=== PATIENT | male | born 1930 | race Caucasian/White ===

== ENCOUNTER 2017-09-15 14:02 | Inpatient (IN) | payer OTHER, BC ==
[~2017-09-15] VITALS: Ht 167.6 cm; Wt 72.0 kg
[2017-09-15 14:34] LABS: HEMATOCRIT 32.7 % (38.0-50.0); HEMOGLOBIN 10.3 G/DL (12.5-16.6); MCH 32.4 PG (29.0-34.0); MCHC 31.5 G/DL (30.0-36.0); MCV 102.8 FL (86-99); PLATELET COUNT 132 K/uL (156-360); RBC DIS.WIDTH-CV 16.1 % (11.8-14.6); RBC DIS.WIDTH-SD 61.3 % (39-53); RED BLOOD COUNT 3.18 M/uL (4.00-5.50); WHITE BLOOD COUNT 5.4 K/uL (4.1-10.2)
[2017-09-15 14:44] LABS: CHLORIDE 100 mEq/L (99-109); POTASSIUM 4.4 mEq/L (3.7-5.4); SODIUM 145 mEq/L (136-147)
[2017-09-15 14:46] LABS: GLUCOSE 82 mg/dL (70-99)
[2017-09-15 14:49] LABS: GFR ESTIMATE (CALCULATED) 34 mL/min/ (58.99-99999)
[2017-09-15 14:50] LABS: UREA NITROGEN (BUN) 33 mg/dL (9-23)
[2017-09-15 14:57] LABS: TROP-I INTERPRETATION NEGATIVE; TROPONIN-I 0.03 ng/mL (0.0-0.30)
[2017-09-15] MEDS ORDERED: KENALOG,ARISTOC80 G1 TP (17:08)
[2017-09-15] MEDS ORDERED: GABAPENTIN100 MG PO (17:08)
[2017-09-15] MEDS ORDERED: FISH OIL 1,0001 EAC7 PO (17:17)
[2017-09-15] MEDS ORDERED: CRESTOR10 MG PO (17:17)
[2017-09-15] MEDS ORDERED: NEXIUM40 MG PO ×2 (17:18)
[2017-09-15] MEDS ORDERED: ASPIRIN81 M2 PO (17:18)
[2017-09-15] MEDS ORDERED: BUMEX2 MG PO (17:19)
[2017-09-15] MEDS ORDERED: FLOMAX0.4 MG PO (17:20)
[2017-09-15 19:00] VITALS: BP 147/70
[2017-09-15 23:59] VITALS: BP 108/58
[2017-09-16 03:30] VITALS: BP 114/59
[2017-09-16 06:46] LABS: HEMATOCRIT 31.7 % (38.0-50.0); HEMOGLOBIN 9.8 G/DL (12.5-16.6); MCH 31.7 PG (29.0-34.0); MCHC 30.9 G/DL (30.0-36.0); MCV 102.6 FL (86-99); PLATELET COUNT 131 K/uL (156-360); RBC DIS.WIDTH-CV 15.9 % (11.8-14.6); RBC DIS.WIDTH-SD 58.8 % (39-53); RED BLOOD COUNT 3.09 M/uL (4.00-5.50); WHITE BLOOD COUNT 3.5 K/uL (4.1-10.2)
[2017-09-16 07:05] LABS: CHLORIDE 99 MEQ/L (99-109); CREATININE 2.2 MG/DL (0.6-1.3); GFR ESTIMATE (CALCULATED) 30 mL/min/ (58.99-99999); GLUCOSE 191 mg/dL (70-99); POTASSIUM 4.6 MEQ/L (3.7-5.4); SODIUM 142 MEQ/L (136-147); UREA NITROGEN (BUN) 37 mg/dL (9-23)
[2017-09-16 08:23] VITALS: BP 133/64
[2017-09-16 12:45] VITALS: BP 130/67
[2017-09-16 16:55] VITALS: BP 133/60
[2017-09-16 19:43] VITALS: BP 115/62
[2017-09-16 23:48] VITALS: BP 107/54
[2017-09-17 04:22] VITALS: BP 126/55
[2017-09-17 07:24] VITALS: BP 118/55
[2017-09-17 12:03] VITALS: BP 135/67
[2017-09-17 13:38] LABS: CHLORIDE 98 MEQ/L (99-109); CREATININE 2.2 MG/DL (0.6-1.3); GFR ESTIMATE (CALCULATED) 30 mL/min/ (58.99-99999); GLUCOSE 171 mg/dL (70-99); POTASSIUM 3.9 MEQ/L (3.7-5.4); SODIUM 142 MEQ/L (136-147)
[2017-09-17 13:40] LABS: UREA NITROGEN (BUN) 58 mg/dL (9-23)
[2017-09-17 15:18] VITALS: BP 127/66
[2017-09-17 20:27] VITALS: BP 123/60
[2017-09-18] VITALS (7 sets, daily range): BP systolic 104–124; BP diastolic 52–71
[2017-09-18 06:14] LABS: BASOPHIL (%) 0.1 % (0-1); EOSINOPHIL (%) 0 % (0-5); HEMATOCRIT 31.1 % (38.0-50.0); HEMOGLOBIN 9.4 G/DL (12.5-16.6); IMMATURE GRANULOCYTE (%) 0.5 % (0.0-0.7); LYMPHOCYTE (%) 3.9 % (15-42); LYMPHOCYTE COUNT 0.4 K/uL (1.0-2.8); MCH 31.2 PG (29.0-34.0); MCHC 30.2 G/DL (30.0-36.0); MCV 103.3 FL (86-99); MONOCYTE (%) 2.4 % (3-12); MONOCYTE COUNT 0.3 K/uL (0-0.8); NEUTROPHIL (%) 93.1 % (45-76); NEUTROPHIL COUNT 10.1 K/uL (1.8-6.4); PLATELET COUNT 117 K/uL (156-360); RBC DIS.WIDTH-CV 16.3 % (11.8-14.6); RED BLOOD COUNT 3.01 M/uL (4.00-5.50); WHITE BLOOD COUNT 10.8 K/uL (4.1-10.2)
[2017-09-18 06:37] LABS: CHLORIDE 97 MEQ/L (99-109); CREATININE 2.4 MG/DL (0.6-1.3); GFR ESTIMATE (CALCULATED) 27 mL/min/ (58.99-99999); GLUCOSE 167 mg/dL (70-99); MAGNESIUM 2.2 mg/dl (1.3-2.7); POTASSIUM 4.2 MEQ/L (3.7-5.4); SODIUM 143 MEQ/L (136-147); UREA NITROGEN (BUN) 66 mg/dL (9-23)
[2017-09-18] MEDS ORDERED: PULMICORT0.5 MG/21 IH (15:08)
[2017-09-18] MEDS ORDERED: IMDUR30 MG PO (15:11)
[2017-09-18] MEDS ORDERED: PROSCAR5 MG PO ×2 (15:12→16:13)
[2017-09-18] MEDS ORDERED: AVODART0.5 MG PO (16:15)
[2017-09-18] MEDS ORDERED: COREG6.25 M1 PO (16:15)
[2017-09-18] MEDS ORDERED: FOLIC ACID0.4 MG PO (16:16)
[2017-09-18] MEDS ORDERED: CYANOCOBALAM1000 MCG PO (16:17)
[2017-09-18 20:28] LABS: APPEARANCE CLEAR ((CLEAR)); BILIRUBIN NEGATIVE; BLOOD NEGATIVE; COLOR YELLOW ((YELLOW)); GLUCOSE (STRIP) NEGATIVE; KETONES NEGATIVE; LEUKOCYTES NEGATIVE; NITRITE NEGATIVE; PROTEIN (STRIP) NEGATIVE; SPECIFIC GRAVITY 1.016 (1.000-1.030); UROBILINOGEN 0.2 MG/DL (0.2-1.0)
[2017-09-19 05:57] LABS: BASOPHIL (%) 0 % (0-1); EOSINOPHIL (%) 0 % (0-5); HEMATOCRIT 32.6 % (38.0-50.0); HEMOGLOBIN 9.8 G/DL (12.5-16.6); IMMATURE GRANULOCYTE (%) 0.6 % (0.0-0.7); LYMPHOCYTE (%) 4.4 % (15-42); LYMPHOCYTE COUNT 0.4 K/uL (1.0-2.8); MCH 31.2 PG (29.0-34.0); MCHC 30.1 G/DL (30.0-36.0); MCV 103.8 FL (86-99); MONOCYTE (%) 1.8 % (3-12); MONOCYTE COUNT 0.2 K/uL (0-0.8); NEUTROPHIL (%) 93.2 % (45-76); NEUTROPHIL COUNT 8.3 K/uL (1.8-6.4); PLATELET COUNT 109 K/uL (156-360); RBC DIS.WIDTH-CV 16.2 % (11.8-14.6); RED BLOOD COUNT 3.14 M/uL (4.00-5.50); WHITE BLOOD COUNT 8.9 K/uL (4.1-10.2)
[2017-09-19 06:25] LABS: CHLORIDE 100 MEQ/L (99-109); CREATININE 2.4 MG/DL (0.6-1.3); GFR ESTIMATE (CALCULATED) 27 mL/min/ (58.99-99999); GLUCOSE 188 mg/dL (70-99); POTASSIUM 4.6 MEQ/L (3.7-5.4); SODIUM 143 MEQ/L (136-147); UREA NITROGEN (BUN) 76 mg/dL (9-23)
[2017-09-19 07:37] VITALS: BP 118/59
[2017-09-19 12:09] VITALS: BP 110/58
[2017-09-19 16:13] VITALS: BP 126/62
[2017-09-19 19:43] VITALS: BP 121/59
[2017-09-19 23:20] VITALS: BP 105/55
[2017-09-20 03:52] VITALS: BP 130/89
[2017-09-20 05:59] LABS: BASOPHIL (%) 0 % (0-1); EOSINOPHIL (%) 0 % (0-5); HEMATOCRIT 31.7 % (38.0-50.0); HEMOGLOBIN 9.6 G/DL (12.5-16.6); IMMATURE GRANULOCYTE (%) 0.4 % (0.0-0.7); LYMPHOCYTE (%) 5.3 % (15-42); LYMPHOCYTE COUNT 0.4 K/uL (1.0-2.8); MCH 31.4 PG (29.0-34.0); MCHC 30.3 G/DL (30.0-36.0); MCV 103.6 FL (86-99); MONOCYTE (%) 2.8 % (3-12); MONOCYTE COUNT 0.2 K/uL (0-0.8); NEUTROPHIL (%) 91.5 % (45-76); NEUTROPHIL COUNT 7.5 K/uL (1.8-6.4); PLATELET COUNT 97 K/uL (156-360); RBC DIS.WIDTH-CV 15.9 % (11.8-14.6); RBC DIS.WIDTH-SD 60.2 % (39-53); RED BLOOD COUNT 3.06 M/uL (4.00-5.50); WHITE BLOOD COUNT 8.2 K/uL (4.1-10.2)
[2017-09-20 06:32] LABS: CHLORIDE 98 MEQ/L (99-109); CREATININE 2.4 MG/DL (0.6-1.3); GFR ESTIMATE (CALCULATED) 27 mL/min/ (58.99-99999); GLUCOSE 180 mg/dL (70-99); POTASSIUM 4.3 MEQ/L (3.7-5.4); SODIUM 142 MEQ/L (136-147); UREA NITROGEN (BUN) 84 mg/dL (9-23)
[2017-09-20 07:31] VITALS: BP 161/73
[2017-09-20 11:31] VITALS: BP 134/70
[2017-09-20 16:53] VITALS: BP 148/74
[2017-09-20 19:27] VITALS: BP 141/62
[2017-09-20 23:52] VITALS: BP 103/57
[2017-09-21 04:30] VITALS: BP 143/65
[2017-09-21 06:20] LABS: HEMOGLOBIN 9.6 G/DL (12.5-16.6); MCV 103.2 FL (86-99); PLATELET COUNT 97 K/uL (156-360); RBC DIS.WIDTH-CV 15.9 % (11.8-14.6); RBC DIS.WIDTH-SD 61.2 % (39-53); WHITE BLOOD COUNT 8.8 K/uL (4.1-10.2)
[2017-09-21 06:47] LABS: CHLORIDE 99 MEQ/L (99-109); CREATININE 2.6 MG/DL (0.6-1.3); GFR ESTIMATE (CALCULATED) 25 mL/min/ (58.99-99999); GLUCOSE 169 mg/dL (70-99); MAGNESIUM 2.3 mg/dl (1.3-2.7); POTASSIUM 4.4 MEQ/L (3.7-5.4); SODIUM 145 MEQ/L (136-147); UREA NITROGEN (BUN) 96 mg/dL (9-23)
[2017-09-21 07:53] VITALS: BP 122/63
[2017-09-21 11:21] VITALS: BP 120/82
[2017-09-21] MEDS ORDERED: SPIRIVA RESPIMAT4 GM IH (12:16)
[2017-09-21] MEDS ORDERED: FLORASTOR250 MG PO (12:16)
[2017-09-21] MEDS ORDERED: MONTELUKAST SOD10 MG PO (12:16)
[2017-09-21] MEDS ORDERED: DUONEB 2.5-0.5 M3 ML AEROSOL (12:16)
[2017-09-21] MEDS ORDERED: CARVEDILOL6.25 MG PO (12:16)
[2017-09-21] MEDS ORDERED: LYRICA25 MG PO (12:16)
[2017-09-21] MEDS ORDERED: LEVOFLOXACIN500 MG PO (12:16)
[2017-09-21] MEDS ORDERED: BUMETANIDE1 MG PO (12:16)
[2017-09-21] MEDS ORDERED: PREDNISONE20 MG PO (12:16)
[2017-09-21] MEDS ORDERED: PROSCAR5 MG PO (12:26)
== END 2017-09-21 15:08 | disposition home or self-care (01) | DRG 291 ==
LOC: EME 14:02 → EDOF 16:43 → ENRESERV 16:49 → 5SOUTH 18:52 → ENPENDDIS 09-21 12:34 → 5SOUTH 09-21 15:08
PROVIDERS: Hospitalist; Internal Medicine; Internal Medicine Nephrology
DX: I13.0 Hypertensive heart and chronic kidney disease with heart failure and stage 1 through stage 4 chronic kidney disease, or unspecified chronic kidney disease (principal); J96.01 Acute respiratory failure with hypoxia; I50.23 Acute on chronic systolic (congestive) heart failure; J44.0 Chronic obstructive pulmonary disease with (acute) lower respiratory infection; J18.9 Pneumonia, unspecified organism; J44.1 Chronic obstructive pulmonary disease with (acute) exacerbation; N17.9 Acute kidney failure, unspecified; E87.3 Alkalosis; T50.2X5A Adverse effect of carbonic-anhydrase inhibitors, benzothiadiazides and other diuretics, initial encounter; D64.9 Anemia, unspecified; D69.6 Thrombocytopenia, unspecified; N40.0 Benign prostatic hyperplasia without lower urinary tract symptoms; Z95.810 Presence of automatic (implantable) cardiac defibrillator; Z66 Do not resuscitate; N18.3 Chronic kidney disease, stage 3 (moderate); I27.20 Pulmonary hypertension, unspecified; I42.0 Dilated cardiomyopathy; Z86.73 Personal history of transient ischemic attack (TIA), and cerebral infarction without residual deficits; I25.2 Old myocardial infarction; I08.3 Combined rheumatic disorders of mitral, aortic and tricuspid valves; J20.9 Acute bronchitis, unspecified; J92.0 Pleural plaque with presence of asbestos; Z87.891 Personal history of nicotine dependence; J98.11 Atelectasis; I25.10 Atherosclerotic heart disease of native coronary artery without angina pectoris; Z77.090 Contact with and (suspected) exposure to asbestos; Z79.82 Long term (current) use of aspirin; Z85.828 Personal history of other malignant neoplasm of skin; E78.5 Hyperlipidemia, unspecified
CPT/HCPCS: 71045; 71046; 71250; 76770; 78582; 80048; 80048 91; 81003; 82570; 82948; 83735; 83880; 84100; 84156; 84484; 85025; 85027; 85379; 87070; 87076; 87106; 87205; 93005; 93306; 94640; 94640 76; 94667; 94668; 94799; 97530 GO; 99281; 99285; A9540; A9567; J0696; J1644; J1940; J2930; J7030; J7512

== ENCOUNTER 2017-10-05 17:04 | Inpatient (IN) | payer OTHER, BC ==
[~2017-10-05] VITALS: Ht 167.6 cm; Wt 77.8 kg
[~2017-10-05 17:04] MED LIST: ASPIRIN81 M2 PO; AVODART0.5 MG PO; BUMETANIDE1 MG PO; BUMEX2 MG PO; CARVEDILOL6.25 MG PO; COREG6.25 M1 PO; CRESTOR10 MG PO; CYANOCOBALAM1000 MCG PO; DUONEB 2.5-0.5 M3 ML AEROSOL; FISH OIL 1,0001 EAC7 PO; FLOMAX0.4 MG PO; FLORASTOR250 MG PO; FOLIC ACID0.4 MG PO; GABAPENTIN100 MG PO; IMDUR30 MG PO; KENALOG,ARISTOC80 G1 TP; LEVOFLOXACIN500 MG PO; LYRICA25 MG PO; MONTELUKAST SOD10 MG PO; NEXIUM40 MG PO; PREDNISONE20 MG PO; PROSCAR5 MG PO; PULMICORT0.5 MG/21 IH; SPIRIVA RESPIMAT4 GM IH
[2017-10-05 18:05] LABS: ALBUMIN 3.5 g/dL (3.2-4.8); CHLORIDE 99 mEq/L (99-109); MAGNESIUM 2.3 mg/dL (1.3-2.7); POTASSIUM 5.1 mEq/L (3.7-5.4); SODIUM 144 mEq/L (136-147)
[2017-10-05 18:06] LABS: HEMATOCRIT 33.3 % (38.0-50.0); HEMOGLOBIN 10.4 G/DL (12.5-16.6); MCH 32.2 PG (29.0-34.0); MCHC 31.2 G/DL (30.0-36.0); MCV 103.1 FL (86-99); RBC DIS.WIDTH-CV 16.7 % (11.8-14.6); RBC DIS.WIDTH-SD 61.1 % (39-53); RED BLOOD COUNT 3.23 M/uL (4.00-5.50); WHITE BLOOD COUNT 11.2 K/uL (4.1-10.2)
[2017-10-05 18:07] LABS: GLUCOSE 80 mg/dL (70-99); TOTAL PROTEIN 6.5 g/dL (6.4-8.3)
[2017-10-05 18:11] LABS: ALKALINE PHOSPHATASE 99 IU/L (3-129); CREATININE 1.9 mg/dL (0.6-1.3); GFR ESTIMATE (CALCULATED) 36 mL/min/ (58.99-99999)
[2017-10-05 18:12] LABS: UREA NITROGEN (BUN) 51 mg/dL (9-23)
[2017-10-05 18:13] LABS: AST (GOT) 15 IU/L (2-34)
[2017-10-05 18:14] LABS: ALT (GPT) 21 IU/L (3-49)
[2017-10-05 18:22] LABS: TROP-I INTERPRETATION NEGATIVE; TROPONIN-I 0.05 ng/mL (0.0-0.30)
[2017-10-05 18:38] LABS: ANISOCYTOSIS 2+; BASOPHIL (%) 0.1 % (0-1); EOSINOPHIL (%) 1.5 % (0-5); EOSINOPHIL COUNT 0.2 K/uL (0-0.3); IMM.PLATELET FRACTION 7.5 (1-7); IMMATURE GRANULOCYTE (%) 0.4 % (0.0-0.7); LYMPHOCYTE (%) 9.3 % (15-42); MACROCYTES 2+; MONOCYTE (%) 7.8 % (3-12); MONOCYTE COUNT 0.9 K/uL (0-0.8); NEUTROPHIL (%) 80.9 % (45-76); NEUTROPHIL COUNT 9.1 K/uL (1.8-6.4); PLAT.SUFFICIENCY VERY DECREASED; POIKILOCYTOSIS 1+
[2017-10-05 19:23] LABS: PLATELET COUNT 48 K/uL (156-360)
[2017-10-05 19:44] LABS: APPEARANCE CLEAR ((CLEAR)); BILIRUBIN NEGATIVE; BLOOD SMALL; COLOR YELLOW ((YELLOW)); GLUCOSE (STRIP) NEGATIVE; KETONES NEGATIVE; LEUKOCYTES SMALL; NITRITE NEGATIVE; PROTEIN (STRIP) 30; SPECIFIC GRAVITY 1.011 (1.000-1.030); UROBILINOGEN 0.2 MG/DL (0.2-1.0)
[2017-10-05 19:54] LABS: BACTERIA NONE SEEN /HPF; EPITHELIAL CELLS RARE /HPF; MUCUS TRACE /LPF; RED BLOOD CELLS 0-5 /HPF (0-5); UCUL ADDED? NO; WHITE BLOOD CELLS 0-5 /HPF (0-5)
[2017-10-05 22:18] VITALS: BP 149/68
[2017-10-05 23:18] LABS: TROP-I INTERPRETATION NEGATIVE; TROPONIN-I 0.05 ng/mL (0.0-0.30)
[2017-10-06 00:53] VITALS: BP 136/63
[2017-10-06] MEDS ORDERED: BUMEX2 MG PO (01:44)
[2017-10-06 05:35] VITALS: BP 136/73
[2017-10-06 06:03] LABS: HEMATOCRIT 34.1 % (38.0-50.0); HEMOGLOBIN 10.3 G/DL (12.5-16.6); MCH 31.2 PG (29.0-34.0); MCHC 30.2 G/DL (30.0-36.0); MCV 103.3 FL (86-99); RBC DIS.WIDTH-CV 16.8 % (11.8-14.6); RBC DIS.WIDTH-SD 62.7 % (39-53); WHITE BLOOD COUNT 8.5 K/uL (4.1-10.2)
[2017-10-06 06:34] LABS: CHLORIDE 100 MEQ/L (99-109); CREATININE 2.1 MG/DL (0.6-1.3); GFR ESTIMATE (CALCULATED) 32 mL/min/ (58.99-99999); GLUCOSE 98 mg/dL (70-99); POTASSIUM 4.5 MEQ/L (3.7-5.4); SODIUM 147 MEQ/L (136-147); UREA NITROGEN (BUN) 51 mg/dL (9-23)
[2017-10-06 06:35] LABS: IMM.PLATELET FRACTION 5.9 (1-7); PLAT.SUFFICIENCY DECREASED; PLATELET COUNT 48 K/uL (156-360)
[2017-10-06 08:00] VITALS: BP 150/71
[2017-10-06 11:02] VITALS: BP 126/58
[2017-10-06 15:56] VITALS: BP 115/56
[2017-10-06 20:15] VITALS: BP 138/63
[2017-10-07 00:32] VITALS: BP 131/61
[2017-10-07 04:58] VITALS: BP 126/40
[2017-10-07 06:35] LABS: CHLORIDE 99 MEQ/L (99-109); CREATININE 2.3 MG/DL (0.6-1.3); GFR ESTIMATE (CALCULATED) 29 mL/min/ (58.99-99999); GLUCOSE 91 mg/dL (70-99); POTASSIUM 4.5 MEQ/L (3.7-5.4); SODIUM 146 MEQ/L (136-147); UREA NITROGEN (BUN) 58 mg/dL (9-23)
[2017-10-07 07:53] VITALS: BP 126/60
[2017-10-07 11:58] VITALS: BP 110/56
[2017-10-07] MEDS ORDERED: SPIRIVA RESPIMAT4 GM IH (13:42)
[2017-10-07] MEDS ORDERED: DUONEB 2.5-0.5 M3 ML AEROSOL (13:42)
[2017-10-07] MEDS ORDERED: TYLENOL REGULA325 MG PO (13:43)
[2017-10-07] MEDS ORDERED: TRAZODONE HCL50 MG PO (13:45)
[2017-10-07] MEDS ORDERED: TRIAMCINOLONE A15 G2 TP (13:46)
[2017-10-07 16:31] VITALS: BP 121/58
== END 2017-10-07 18:14 | disposition hospice, home (50) | DRG 291 ==
LOC: EME 17:04 → 5EAST 19:45 → EDOF 19:45 → ENRESERV 19:50 → 5EAST 21:17
PROVIDERS: Emergency Medicine; Hospitalist; Internal Medicine Cardiovascular Disease
DX: I13.0 Hypertensive heart and chronic kidney disease with heart failure and stage 1 through stage 4 chronic kidney disease, or unspecified chronic kidney disease (principal); I50.43 Acute on chronic combined systolic (congestive) and diastolic (congestive) heart failure; N18.3 Chronic kidney disease, stage 3 (moderate); J44.1 Chronic obstructive pulmonary disease with (acute) exacerbation; J44.0 Chronic obstructive pulmonary disease with (acute) lower respiratory infection; J12.9 Viral pneumonia, unspecified; I42.0 Dilated cardiomyopathy; D64.9 Anemia, unspecified; D69.6 Thrombocytopenia, unspecified; E78.5 Hyperlipidemia, unspecified; I25.10 Atherosclerotic heart disease of native coronary artery without angina pectoris; I27.20 Pulmonary hypertension, unspecified; I35.0 Nonrheumatic aortic (valve) stenosis; G62.9 Polyneuropathy, unspecified; Z66 Do not resuscitate; Z79.82 Long term (current) use of aspirin; I25.2 Old myocardial infarction; Z86.73 Personal history of transient ischemic attack (TIA), and cerebral infarction without residual deficits; Z87.891 Personal history of nicotine dependence; Z95.0 Presence of cardiac pacemaker; Z95.810 Presence of automatic (implantable) cardiac defibrillator; Z99.81 Dependence on supplemental oxygen
CPT/HCPCS: 71045; 71250; 80048; 80053; 81003; 83735; 83880; 84484; 85025; 85027; 93005; 94640; 94640 76; 94760; 94799; 99202; 99281; 99285; J0696; J1940; J3010